=== PATIENT | male | born 1955 | race Caucasian/White ===

== ENCOUNTER 2020-05-25 06:59 | Day surgery (SDC) | payer BC, MEDICARE ==
[2020-05-25] MEDS ORDERED: Sodium Chloride 0.9% 1,000 ML IV SCH (08:00)
[2020-05-25] MEDS ORDERED: Midazolam 1 MG/ML 2 ML SDV ONE (08:36)
[2020-05-25] MEDS ORDERED: Propofol 200 MG/20 ML SDV ONE (08:36)
[2020-05-25] MEDS ORDERED: fentaNYL 100 MCG/2 ML SDV ONE (08:36)
[2020-05-25 10:41] VITALS: BP 153/79; PULSE 58
--- NOTE | 2020-05-25 13:42 | OR ---
DATE OF PROCEDURE: 05/25/2020 SURGEON: Candelario Leggett MD PROCEDURE: Colonoscopy. FINDINGS: Ascending colon polyp, approximately 5 mm, completely removed using cold biopsy forceps. COMPLICATIONS: None. FORK TRUCK OPERATOR: None. ANESTHESIA: MAC. PREOPERATIVE DIAGNOSIS: Screening colonoscopy. POSTOPERATIVE DIAGNOSIS: Screening colonoscopy. RISKS: Risks, benefits, alternatives, and limitations including, but not limited to infection, bleeding, perforation, false positives, false negatives were explained to the patient who wished to proceed. PROCEDURE IN DETAIL: The patient was placed in left lateral decubitus position. Digital rectal exam was performed that showed mild external hemorrhoid without evidence of thrombosis. Scope was introduced and advanced atraumatically to the ileocecal valve. A photo was taken of this. Scope was brought back to the ascending, transverse, descending colon, and retroflexed. No evidence of old or new blood. No masses. No polyps. No diverticulosis. No colitis. No abnormalities on retroflexion. The patient tolerated the procedure well. Greater than 8 minutes was spent removing the scope. The prep was acceptable, approximately 95% of the luminal surface could be seen. The patient tolerated the procedure well. Candelario Leggett MD /[id number]
== END 2020-05-25 10:50 | disposition home or self-care (01) ==
LOC: JP.SDS 06:59
PROVIDERS: ATTEND Surgery
DX: Z12.11 Encounter for screening for malignant neoplasm of colon (principal); K63.5 Polyp of colon; K64.4 Residual hemorrhoidal skin tags; I10 Essential (primary) hypertension; G47.33 Obstructive sleep apnea (adult) (pediatric); Z88.0 Allergy status to penicillin
CPT/HCPCS: J2250; J2704; J3010; J7030

== ENCOUNTER 2020-09-01 13:20 | Emergency (ER) | payer MEDICARE ==
[2020-09-01 13:53] VITALS: BP 166/94; PULSE 61
[2020-09-01] MEDS ORDERED: Ibuprofen 800 MG Tab PO ONE (14:13)
--- NOTE | 2020-09-01 14:38 | EDM.PDOC ---
ED HPI GENERAL MEDICAL PROBLEM - General Chief Complaint: Upper Extremity Injury/Pain Stated Complaint: RT SHOULDER PAIN Time Seen by Provider: 09/01/20 14:00 Source of Information: Reports: Patient, RN, RN Notes Reviewed History Limitations: Reports: No Limitations - History of Present Illness INITIAL COMMENTS - FREE TEXT/NARRATIVE: Patient here today for right shoulder injury. Yesterday he was riding horse [place] and the horse jerked on the rains and he felt popping in his right shoulder. Caused him severe pain immediate nausea and he was concerned whether or not he would be able to get off of the horse. He did manage to dismount and walked back to his home. He took some ibuprofen and this did seem to help with the pain however pain is persistent and continuous. About 2 months ago he injured the shoulder and heard some popping and cracking noises while he was fixing fence. Seem to subside until recent injury of yesterday. Onset: Sudden Onset Date: 08/31/20 Duration: Hour(s):, Waxing/Waning (Improved with ibuprofen. Pain makes patient want to cry.) Location: Reports: Upper Extremity, Right Quality: Reports: Ache, Sharp, Throbbing Severity: Moderate Improves with: Reports: Medication (Patient is used ibuprofen with good relief temporarily) Worsens with: Reports: Movement Context: Reports: Trauma Associated Symptoms: Reports: Nausea/Vomiting (Due to injury initially, no longer any nausea or vomiting.) Treatments MANAGER METROLOGY: Reports: Cold Therapy, NSAIDS - Related Data Allergies Allergy/AdvReac Type Severity Reaction Status Date / Time Penicillins Allergy Hives Verified 09/01/20 13:50 Home Meds: Home Meds Citalopram Hydrobromide [Celexa] 30 mg PO DAILY 05/23/20 [History] Losartan [Cozaar] 100 mg PO DAILY 05/23/20 [History] Metoprolol Tartrate [Lopressor] 100 mg PO BID 05/23/20 [History] Sildenafil [Revatio] 2 - 5 tab PO ASDIRECTED 05/23/20 [History] Spironolactone [Aldactone] 50 mg PO DAILY 05/23/20 [History] buPROPion HCL [Wellbutrin Sr] 150 mg PO BID 05/23/20 [History] Past Medical History HEENT History: Reports: Impaired Vision Other HEENT History: wears glasses Cardiovascular History: Reports: Hypertension Respiratory History: Reports: Sleep Apnea Gastrointestinal History: Reports: GERD Genitourinary History: Reports: Renal Calculus Musculoskeletal History: Reports: Fracture Psychiatric History: Reports: Anxiety, Depression, Psych Hospitalization(s) - Infectious Disease History Infectious Disease History: Reports: Chicken Pox, Herpes, Mumps - Past Surgical History Head Surgeries/Procedures: Reports: None HEENT Surgical History: Reports: None Cardiovascular Surgical History: Reports: None Respiratory Surgical History: Reports: None GI Surgical History: Reports: None Male Surgical History: Reports: Kidney Stone Extraction Musculoskeletal Surgical History: Reports: Other (See Below) Other Musculoskeletal Surgeries/Procedures:: wrist and thumb surgeries Dermatological Surgical History: Reports: None Social & Family History - Family History Family Medical History: No Pertinent Family History - Tobacco Use Tobacco Use Status *Q: Former Tobacco User Used Tobacco, but Quit: Yes Month/Year Tobacco Last Used: 2015 Second Hand Smoke Exposure: No - Caffeine Use Caffeine Use: Reports: Coffee - Recreational Drug Use Recreational Drug Use: No Review of Systems - Review of Systems Review Of Systems: See Below Constitutional: Reports: No Symptoms Respiratory: Reports: No Symptoms Cardiovascular: Reports: No Symptoms GI/Abdominal: Reports: No Symptoms Musculoskeletal: Reports: Shoulder Pain (Right) Skin: Reports: No Symptoms Neurological: Reports: No Symptoms Psychiatric: Reports: No Symptoms ED EXAM, GENERAL - Physical Exam Exam: See Below Free Text/Narrative:: With full range of motion on right shoulder. Tender at glenoid space. CMS intact distal to the shoulder. Exam Limited By: No Limitations General Appearance: Alert, WD/WN, No Apparent Distress Neck: Normal Inspection, Supple, Non-Tender Respiratory/Chest: No Respiratory Distress, Lungs Clear Cardiovascular: Normal Peripheral Pulses, Regular Rate, Rhythm Peripheral Pulses: 2+: Radial (L), Radial (R) Extremities: Normal Inspection, Normal Range of Motion, Arm Pain (Right shoulder). No: Non-Tender, Joint Swelling, Limited Range of Motion, Increased Warmth Neurological: Alert, Oriented, CN II-XII Intact, Normal Cognition Psychiatric: Normal Affect, Normal Mood Skin Exam: Warm, Dry, Intact, Normal Color Course - Vital Signs Text/Narrative:: Vital signs stable Last Recorded V/S: Last Vital Signs Temp 35.7 C L 09/01/20 13:53 Pulse 61 06/26/21 13:53 Resp 16 09/01/20 13:53 BP 166/94 H 09/01/20 13:53 Pulse Ox 96 09/01/20 13:53 - Orders/Labs/Meds Orders: Active Orders 24 hr Category Date Time Status Shoulder Comp Rt [CR] Stat Exams 09/01/20 14:10 Taken Meds: Medications Discontinued Medications Generic Name Dose Route Start Last Admin Trade Name Sophia PRN Reason Stop Dose Admin Ibuprofen 800 mg 09/01/20 14:13 09/01/20 14:25 Ibuprofen 800 Mg Tab PO 09/01/20 14:14 800 mg ONETIME ONE Administration - Radiology Interpretation Free Text/Narrative:: X-ray of shoulder preliminary read negative no malalignment, no dislocation, no fractures noted. - Re-Assessments/Exams Free Text/Narrative Re-Assessment/Exam: 09/01/20 14:53 Educated patient on x-ray findings. Patient does have full range of motion of his arm. Likely a strain or sprain. Instructed patient to follow-up with primary care provider on Thursday if he feels this is not improving or he has any changes in his use of his arm. Will provide sling and instructed patient in ibuprofen with max dosing. Patient states understanding and is in agreement with plan. Departure - Departure Time of Disposition: 15:12 Disposition: Home, Self-Care 01 Condition: Fair Clinical Impression: Shoulder strain - Discharge Information *PRESCRIPTION DRUG MONITORING PROGRAM REVIEWED*: Not Applicable *COPY OF PRESCRIPTION DRUG MONITORING REPORT IN PATIENT KIRT: Not Applicable Instructions: Shoulder Pain, [id number], Muscle Strain, [id number] Referrals: Bud Land MD [Primary Care Provider] - Forms: ED Department Discharge Additional Instructions: Patient to utilize ibuprofen 800 mg 3 times a day over the next 3 to 4 days for inflammation and pain of right shoulder. If pain worsens, has decreased mobility, or has decreased sensation he is to follow-up with his primary care provider for further evaluation Care Plan Goals: Pain control for shoulder pain Sepsis Event Note (ED) - Evaluation Sepsis Screening Result: No Definite Risk - Focused Exam Vital Signs: Vital Signs Temp Pulse Resp BP Pulse Ox 09/01/20 13:53 35.7 C L 61 16 166/94 H 96 09/01/20 13:52 35.7 C L 61 16 166/94 H 96 - My Orders Last 24 Hours: My Active Orders 09/01/20 14:10 Shoulder Comp Rt [CR] Stat - Assessment/Plan Last 24 Hours: My Active Orders 09/01/20 14:10 Shoulder Comp Rt [CR] Stat Assessment:: Shoulder pain Plan: Patient sent home with sling and instructed in the use of ibuprofen for pain relief. Patient to use ice elevation rest. Follow-up with primary care provider if pain worsens, has decreased range of motion, or CMS changes.
--- NOTE | 2020-09-03 10:04 | CR ---
Shoulder Comp Rt CLINICAL HISTORY: Shoulder pain FINDINGS: There is no acute fracture or dislocation in the right shoulder. Impression: Negative
== END 2020-09-01 15:12 | disposition home or self-care (01) ==
LOC: JP.ED 13:20
DX: S46.911A Strain of unspecified muscle, fascia and tendon at shoulder and upper arm level, right arm, initial encounter (principal); I10 Essential (primary) hypertension; Z88.0 Allergy status to penicillin; Z79.899 Other long term (current) drug therapy; Z87.891 Personal history of nicotine dependence; W55.12XA Struck by horse, initial encounter; Y93.52 Activity, horseback riding
CPT/HCPCS: 73030; 99282; 99283; A9270